=== PATIENT | male | born 1965 | race American Indian/Alaskan Native ===

== ENCOUNTER 2018-02-06 11:03 | Emergency (ER) | payer SELFPAY ==
[2018-02-06] MEDS ORDERED: ASPIRIN PO ONE (11:23)
[2018-02-06 12:11] LABS: Basophils % (Auto) 0.3 % (0.0-1.8); Eosinophils # (Auto) 0.1 K/mm3 (0.0-0.4); Eosinophils % (Auto) 0.7 % (0.0-4.3); Hematocrit 39.3 % (35.5-45.6); Hemoglobin 12.8 gm/dl (11.8-15.2); Lymphocytes # (Auto) 2.6 K/mm3 (1.2-5.4); Lymphocytes % (Auto) 29.8 % (13.4-35.0); Mean Corpuscular HGB Conc 33 % (32-34); Mean Corpuscular Hemoglobin 29 pg (28-32); Mean Corpuscular Volume 89 fl (84-94); Monocytes # (Auto) 1.2 K/mm3 (0.0-0.8); Monocytes % (Auto) 14.2 % (0.0-7.3); Platelet Count 251 K/mm3 (140-440); Red Blood Count 4.43 M/mm3 (3.65-5.03); Red Cell Distribution Width 14.1 % (13.2-15.2)
[2018-02-06 12:24] LABS: BUN/Creatinine Ratio 22; Blood Urea Nitrogen 22 mg/dL (9-20); Calcium 9.8 mg/dL (8.4-10.2); Hemolysis Index 9
[2018-02-06 13:31] LABS: Alanine Aminotransferase 13 units/L (7-56)
[2018-02-06 13:36] LABS: Bilirubin,Direct < 0.2 mg/dL (0-0.2)
--- NOTE | 2018-02-06 14:22 | Emergency Department Report ---
ED General Adult HPI - General Chief complaint: Syncope Stated complaint: SYNCOPE EPISODE Time Seen by Provider: 02/06/18 11:31 Source: patient, EMS Mode of arrival: Stretcher Limitations: No Limitations - History of Present Illness Initial comments: Patient presents to the emergency department via EMS for syncopal episode. The patient states that he is agreeable could admit bottles and this morning while at work he started to feel lightheaded and dizzy and also began to see black spots. Patient states at that time he told his boss he was not feeling well and stepped outside. Upon returning to the the patient states that he felt real weak and then he passed out. Patient denies chest pain, abdominal pain, headache. No evidence associated symptoms -: Sudden Radiation: non-radiation Severity scale (0 -10): 0 Improves with: none Worsens with: none Associated Symptoms: denies other symptoms Treatments Prior to Arrival: none - Related Data Allergies Allergy/AdvReac Type Severity Reaction Status Date / Time Penicillins Allergy Severe Shortness Verified 02/06/18 11:21 of Breath strawberry AdvReac Hives Verified 02/06/18 11:22 ED Review of Systems ROS: Stated complaint: SYNCOPE EPISODE Other details as noted in HPI Comment: All other systems reviewed and negative Constitutional: denies: chills, fever Eyes: denies: eye pain, eye discharge, vision change ENT: denies: ear pain, throat pain Respiratory: denies: cough, shortness of breath, wheezing Cardiovascular: denies: chest pain, palpitations Endocrine: no symptoms reported Gastrointestinal: denies: abdominal pain, nausea, diarrhea Genitourinary: denies: urgency, dysuria Musculoskeletal: denies: back pain, joint swelling, arthralgia Skin: denies: rash, lesions Neurological: denies: headache, weakness, paresthesias Psychiatric: denies: anxiety, depression Hematological/Lymphatic: denies: easy bleeding, easy bruising ED Past Medical Hx - Past Medical History Hx Arthritis: Yes (right hip) - Surgical History Past Surgical History?: No - Social History Smoking Status: Never Smoker ED Physical Exam - General Limitations: No Limitations General appearance: alert, in no apparent distress - Head Head exam: Present: atraumatic, normocephalic - Eye Eye exam: Present: normal appearance - ENT ENT exam: Present: mucous membranes moist - Neck Neck exam: Present: normal inspection - Respiratory Respiratory exam: Present: normal lung sounds bilaterally. Absent: respiratory distress, wheezes, rales - Cardiovascular Cardiovascular Exam: Present: regular rate, normal rhythm. Absent: systolic murmur, diastolic murmur, rubs, gallop - GI/Abdominal GI/Abdominal exam: Present: soft, normal bowel sounds. Absent: distended, tenderness - Rectal Rectal exam: Present: deferred - Extremities Exam Extremities exam: Present: normal inspection - Back Exam Back exam: Present: normal inspection - Neurological Exam Neurological exam: Present: alert, oriented X3, CN II-XII intact. Absent: motor sensory deficit - Psychiatric Psychiatric exam: Present: normal affect, normal mood - Skin Skin exam: Present: warm, dry, intact, normal color. Absent: rash ED Course Vital Signs 02/06/18 02/06/18 02/06/18 11:09 11:24 13:57 Temperature 98.5 F 98.5 F Pulse Rate 80 83 Pulse Rate [ 65 Lying] Pulse Rate [ 68 Sitting] Pulse Rate [ 88 Standing] Respiratory 21 19 Rate Blood Pressure 118/82 Blood Pressure 129/81 [Lying] Blood Pressure 128/90 [Right] Blood Pressure 136/92 [Sitting] Blood Pressure 154/108 [Standing] O2 Sat by Pulse 98 98 Oximetry 02/06/18 14:01 Temperature Pulse Rate 88 Pulse Rate [ Lying] Pulse Rate [ Sitting] Pulse Rate [ Standing] Respiratory 16 Rate Blood Pressure Blood Pressure [Lying] Blood Pressure 154/108 [Right] Blood Pressure [Sitting] Blood Pressure [Standing] O2 Sat by Pulse 100 Oximetry ED Medical Decision Making - Lab Data Result diagrams: 02/06/18 11:38 02/06/18 11:38 - EKG Data -: EKG Interpreted by Md EKG shows normal: sinus rhythm Rate: normal (77 bpm) - EKG Data Interpretation: nonspecific ST-T wave fritz - Medical Decision Making Discussed results with patient and the need for admission. The patient politely declined and states that he feels much better now and would rather go home. Critical care attestation.: If time is entered above; I have spent that time in minutes in the direct care of this critically ill patient, excluding procedure time. ED Disposition Clinical Impression: Vaso vagal episode Disposition: -01 TO HOME OR SELFCARE Is pt being admited?: No Does the pt Need Aspirin: No Condition: Stable Instructions: Syncope (ED) Additional Instructions: Return if symptoms worsen Referrals: PRIMARY CARE, [Primary Care Provider] - 3-5 Days JAMESON MTZ MD [Staff Physician] - 3-5 Days Time of Disposition: 14:56
--- NOTE | 2018-02-06 14:27 | Cat Scan Report ---
FINAL REPORT EXAM: CT HEAD/BRAIN WO CON HISTORY: syncope TECHNIQUE: CT examination of the head without IV contrast PRIORS: None. FINDINGS: Slight atherosclerotic calcification in the carotid siphon bilaterally. No acute air-fluid level visualized in the included air-filled sinuses. Bone windows demonstrate no acute fracture. The brain is without mass, mass effect, hemorrhage, or acute infarct. There is no extra-axial intracranial bleed, brain bleed, or midline shift. The ventricles and sulci are age-appropriate. IMPRESSION: No acute CVA, intracranial bleed, or brain mass
[2018-02-06 15:11] VITALS: BP 117/80
== END 2018-02-06 15:21 | disposition home or self-care (01) ==
LOC: ED 11:03
DX: R55 Syncope and collapse (principal); M19.90 Unspecified osteoarthritis, unspecified site; Z88.0 Allergy status to penicillin; Z91.018 Allergy to other foods
CPT/HCPCS: 36415; 70450; 80048; 80074; 84484; 85025; 93005; 93010; 99285

== ENCOUNTER 2020-05-08 23:33 | Observation (INO) | payer SELFPAY ==
--- NOTE | 2020-05-09 00:19 | Emergency Department Report ---
HPI - General Chief Complaint: Hyperglycemia Time Seen by Provider: 05/08/20 23:59 - HPI HPI: This is a 54-year-old male presents to the emergency department via EMS from home with complaint of some chest discomfort, lower abdominal pain, and hyperglycemia. Patient was eating dinner this evening when he started developing some mild midsternal chest discomfort and some lower abdominal cramping pain. It started feeling better after taking 3 baby aspirin. EMS found the patient to have a critically high blood sugar by Accu-Chek. Patient does have a history of insulin-dependent diabetes, hypertension and arthritis. He takes Novolin 70/30 with 15 units 3 times a day at meals and says he has been compliant. Patient follows with a [place] physician for primary care. No recent travel or sick contacts at home. ED Past Medical Hx - Past Medical History Previous Medical History?: Yes Hx Hypertension: Yes Hx Diabetes: Yes Hx Arthritis: Yes - Surgical History Past Surgical History?: No - Social History Smoking Status: Never Smoker Substance Use Type: None - Medications Home Medications: Home Medications Medication Instructions Recorded Confirmed Last Taken Type Insulin NPH/Regular [Novolin 70/30] 15 unit SQ TIDAC #1 vial 04/05/20 05/09/20 Unknown Rx Syringe and Needle,Insulin,1Ml 1 each MC TID #1 box 04/05/20 05/09/20 Unknown Rx [Insulin Syringe/Needle 1 ML] ED Review of Systems ROS: Stated complaint: CHEST/STOMACH PAIN Other details as noted in HPI Comment: All other systems reviewed and negative Constitutional: denies: chills, fever Eyes: denies: eye pain, vision change ENT: denies: ear pain, throat pain Respiratory: denies: cough, shortness of breath Cardiovascular: chest pain. denies: palpitations Gastrointestinal: abdominal pain. denies: vomiting Genitourinary: denies: dysuria, discharge Musculoskeletal: denies: back pain, arthralgia Skin: denies: rash, lesions Neurological: denies: headache, weakness Physical Exam - Physical Exam Vital Signs: Vital Signs 05/08/20 23:36 Temperature 99.3 F Pulse Rate 117 H Respiratory 20 Rate Blood Pressure 125/99 O2 Sat by Pulse 98 Oximetry Physical Exam: GENERAL: The patient is well-developed well-nourished. HENT: Normocephalic. Atraumatic. Patient has moist mucous membranes. EYES: Extraocular motions are intact. NECK: Supple. Trachea is midline. CHEST/LUNGS: Clear to auscultation. There is no respiratory distress noted. HEART/CARDIOVASCULAR: Regular. There is mild tachycardia. There is no murmur. ABDOMEN: Abdomen is soft. Lower abdominal tenderness to the patient a no guarding. Patient has normal bowel sounds. SKIN: Skin is warm and dry. NEURO: The patient is awake, alert, and oriented. The patient is cooperative. The patient has no focal neurologic deficits. Normal speech. MUSCULOSKELETAL: There is no tenderness or deformity. There is no evidence of acute injury. ED Course Vital Signs 05/08/20 23:36 Temperature 99.3 F Pulse Rate 117 H Respiratory 20 Rate Blood Pressure 125/99 O2 Sat by Pulse 98 Oximetry ED Medical Decision Making - Lab Data Result diagrams: 05/08/20 23:46 05/08/20 23:46 - EKG Data -: EKG Interpreted by Nh EKG shows normal: sinus rhythm, axis, intervals, QRS complexes, ST-T waves Rate: tachycardia (104 bpm) - EKG Data When compared to previous EKG there are: no significant change Interpretation: unchanged when compared t (04/03/20) - Radiology Data Radiology results: report reviewed ACUTE ABDOMEN SERIES 3 VIEWS 0048 INDICATION: abd pain, CP COMPARISON: None available. FINDINGS: Poor degree of inspiration is seen but lung campbell appear clear Trace. Mild right basilar atelectasis is noted. No pneumoperitoneum is seen. Bowel gas pattern is unremarkable. There probably is left nephrolithiasis. CT ABDOMEN AND PELVIS WITH CONTRAST INDICATION: lower abd pain CONTRAST: 100 cc Omnipaque 300 IV COMPARISON: 04/03/[address] scans at this location are performed using CT dose reduction for ALARA by means of automated exposure control. FINDINGS: Moderate motion artifact degrades the study. Lung bases show no definite infiltrates. No pneumoperitoneum is seen. Prominent fatty infiltration of the liver is seen without obvious focal lesion. Liver is enlarged and has a length of 25.5 cm. Spleen is not enlarged. I see no abnormalities the gallbladder, bile ducts, pancreas, or adrenals. Bilateral renal cysts and probable cysts are again seen. No urinary obstructive changes are noted. Small duodenal diverticulum is seen. No evidence of bowel obstruction is noted. Appendix appears within normal limits. Mild colonic diverticulosis is seen without evidence of diverticulitis. No inflammatory changes are obvious. No lymphadenopathy is seen. No free fluid is noted. IMPRESSION: No acute abnormalities are seen - Medical Decision Making This patient presents to the emergency department with a complaint of some acute midsternal chest pain and lower abdominal pain. When EMS got there he was found to have critically high blood sugar despite alleged compliance with his insulin. Patient does not have any venous acidosis or any serum ketones, but does have a elevated anion gap and had a blood sugar of about 630. Patient has an elevated osmolality. He was given 2 doses of IV insulin and 2 L of IV fluid resuscitation and the blood sugar has started to come down. First troponin negative. Negative d-dimer. Chest x-ray did not show any acute process. Patie nt will be admitted to the hospital for further evaluation and treatment and was accepted for admission by the hospitalist, Dr. Ac. Critical Care Time: No Critical care attestation.: If time is entered above; I have spent that time in minutes in the direct care of this critically ill patient, excluding procedure time. ED Disposition Clinical Impression: Hyperosmolar non-ketotic state due to type 2 diabetes mellitus, Acute chest pain, Acute abdominal pain, Metabolic acidosis, increased anion gap Disposition: 09 OP ADMIT IP TO THIS HOSP Is pt being admited?: Yes Condition: Serious Time of Disposition: 04:55
[2020-05-09 00:22] LABS: Basophils % (Auto) 0.3 % (0.0-1.8); Eosinophils % (Auto) 0.2 % (0.0-4.3); Hematocrit 46.4 % (35.5-45.6); Hemoglobin 15.6 gm/dl (11.8-15.2); Lymphocytes # (Auto) 2.6 K/mm3 (1.2-5.4); Lymphocytes % (Auto) 23.3 % (13.4-35.0); Mean Corpuscular HGB Conc 34 % (32-34); Mean Corpuscular Volume 89 fl (84-94); Monocytes # (Auto) 1.1 K/mm3 (0.0-0.8); Monocytes % (Auto) 9.4 % (0.0-7.3); Platelet Count 276 K/mm3 (140-440); Red Cell Distribution Width 13.9 % (13.2-15.2)
[2020-05-09 00:41] LABS: Alanine Aminotransferase 58 units/L (7-56); Albumin 4.2 g/dL (3.9-5); BUN/Creatinine Ratio 13; Blood Urea Nitrogen 20 mg/dL (9-20); Hemolysis Index 7
[2020-05-09 00:41] LABS: Bilirubin,Urine NEG (Negative); Blood,Urine NEG (Negative); Color,Urine Yellow (Yellow); Mucus,Urine FEW /HPF; Protein,Urine <15 mg/dL mg/dL (Negative); Urobilinogen,Urine < 2.0 mg/dL (<2.0)
[2020-05-09 00:49] LABS: INR 0.99 (0.87-1.13)
--- NOTE | 2020-05-09 01:01 | XRay Report ---
ACUTE ABDOMEN SERIES 3 VIEWS 0048 INDICATION: abd pain, CP COMPARISON: None available. FINDINGS: Poor degree of inspiration is seen but lung campbell appear clear Trace. Mild right basilar atelectasis is noted. No pneumoperitoneum is seen. Bowel gas pattern is unr emarkable. There probably is left nephrolithiasis. Signer Name: Zeeshan Spear MD Signed: 05/09/2020 12:56 AM Workstation Name: [id number]
[2020-05-09] MEDS: INSULIN REGULAR, HUMAN 100 UNITS/1 ML IV ONE ×2 (01:16→01:43)
[2020-05-09] MEDS: SODIUM CHLORIDE 0.9% 1000 ML 1,000 ML IV ONE ×2 (01:16→01:43)
[2020-05-09] MEDS ORDERED: SODIUM CHLORIDE 0.9% 1000 ML 1,000 ML IV ONE ×2 (03:03→04:54)
[2020-05-09] MEDS ORDERED: INSULIN REGULAR, HUMAN 100 UNITS/1 ML IV ONE (03:03)
--- NOTE | 2020-05-09 04:30 | Cat Scan Report ---
CT ABDOMEN AND PELVIS WITH CONTRAST INDICATION: lower abd pain CONTRAST: 100 cc Omnipaque 300 IV COMPARISON: 04/03/[address] scans at this location are performed using CT dose reduction for ALARA by means of automated e xposure control. FINDINGS: Moderate motion artifact degrades the study. Lung bases show no definite infiltrates. No pneumoperitoneum is seen. Prominent fatty infiltration of the liver is seen without obvious focal lesion. Liver is enlarged and has a length of 25.5 cm. Splee n is not enlarged. I see no abnormalities the gallbladder, bile ducts, pancreas, or adrenals. Bilater al renal cysts and probable cysts are again seen. No urinary obstructive changes are noted. Small duo denal diverticulum is seen. No evidence of bowel obstruction is noted. Appendix appears within normal limits. Mild colonic diverticulosis is seen without evidence of diverticulitis. No inflammatory telles ges are obvious. No lymphadenopathy is seen. No free fluid is noted. IMPRESSION: No acute abnormalities are seen Signer Name: Zeeshan Spear MD Signed: 05/09/2020 4:26 AM Workstation Name: [id number]
[2020-05-09] MEDS ORDERED: ASPIRIN 81 MG TAB CHEW PO ONE (04:48)
--- NOTE | 2020-05-09 08:05 | History and Physical Report ---
History of Present Illness Date of examination: 05/09/20 Date of admission: 05/09/20 Chief complaint: Chest pain and abdominal pain History of present illness: Patient is a 55-year-old male with past medical history of type 2 diabetes mellitus which he states was recently diagnosed, morbid obesity, HTN, HLP arthritis and right hip chronic pain which she is scheduled to have surgery recently Who presents to the ED with complaint of chest pain that started after dinner with some lower abdominal cramping. Patient reports feeling better after taking 3 baby aspirin EMS was activated and on arrival was noted to have elevated blood sugar. The patient reports compliance with his insulin although states that he just started this. He takes Novolin 70/30 with 15 units 3 times a day at meals and says he has been compliant. Patient follows with a [place] physician for primary care. No recent travel or sick contacts at home. - Past Medical History Previous Medical History?: Yes Hx Hypertension: Yes Hx Diabetes: Yes Hx Arthritis: Yes - Surgical History Past Surgical History?: No - Social History Smoking Status: Never Smoker Substance Use Type: None Past History Past Medical History: diabetes, hypertension, hyperlipidemia Past Surgical History: No surgical history Social history: no significant social history, full code Family history: no significant family history Medications and Allergies Allergies Allergy/AdvReac Type Severity Reaction Status Date / Time Penicillins Allergy Severe Shortness Verified 02/06/18 11:21 of Breath strawberry AdvReac Hives Verified 02/06/18 11:22 Home Medications Medication Instructions Recorded Confirmed Last Taken Type Insulin NPH/Regular [Novolin 70/30] 15 unit SQ TIDAC #1 vial 04/05/20 05/09/20 Unknown Rx Syringe and Needle,Insulin,1Ml 1 each MC TID #1 box 04/05/20 05/09/20 Unknown Rx [Insulin Syringe/Needle 1 ML] Active Meds: Active Medications Sodium Chloride (Nacl 0.9% 1000 Ml) 1,000 mls @ 250 mls/hr IV ONCE ONE Stop: 05/09/20 08:53 Last Admin: 05/09/20 05:05 Dose: 250 mls/hr Documented by: Review of Systems All systems: negative Cardiovascular: chest pain, no orthopnea, no palpitations, no rapid/irregular heart beat, no edema, no syncope, no lightheadedness, no shortness of breath Respiratory: no cough, no cough with sputum, no excessive sputum, no hemoptysis, no shortness of breath, no dyspnea on exertion Gastrointestinal: abdominal pain, no nausea, no vomiting, no diarrhea, no constipation Musculoskeletal: other (Right hip pain) Exam - Physical Exam Narrative exam: VITAL SIGNS: Reviewed. GENERAL: The patient appears normally developed, morbidly obese. Vital signs as documented. HEAD: No signs of head trauma. EYES: Pupils are equal. Extraocular motions intact. EARS: Hearing grossly intact. MOUTH: Oropharynx is normal. NECK: No adenopathy, no JVD. CHEST: Chest with clear breath sounds bilaterally. No wheezes, rales, or rhonchi. CARDIAC: Regular rate and rhythm. S1 and S2, without murmurs, gallops, or rubs. VASCULAR: No Edema. Peripheral pulses normal and equal in all extremities. ABDOMEN: Soft, non tender and non distended. No rebound or guarding, and no masses palpated. Bowel Sounds normal. MUSCULOSKELETAL: Good range of motion of all major joints. Extremities without clubbing, cyanosis or edema. NEUROLOGIC EXAM: Alert and oriented x 3 No focal sensory or strength deficits. Speech normal. Follows commands. PSYCHIATRIC: Mood normal. SKIN: detail exam as documented in skin assessment - Constitutional Vitals: Temp Pulse Resp BP Pulse Ox 99.3 F 98 H 20 119/78 95 05/08/20 23:36 05/09/20 03:14 05/08/20 23:36 05/09/20 03:00 05/09/20 02:00 HEART Score - HEART Score EKG: Non-specific Age: 45-65 Risk factors: > 3 risk factors or hx of atherosclerotic disease Troponin: Troponin T < 0.010 ng/mL (0.00-0.029) 05/09/20 00:15 Troponin: < normal limit Results - Labs CBC & Chem 7: 05/09/20 08:28 05/09/20 08:28 Labs: Laboratory Last Values WBC 11.2 K/mm3 (4.5-11.0) H 05/08/20 23:46 RBC 5.20 M/mm3 (3.65-5.03) H 05/08/20 23:46 Hgb 15.6 gm/dl (11.8-15.2) H 05/08/20 23:46 Hct 46.4 % (35.5-45.6) H 05/08/20 23:46 MCV 89 fl (84-94) 05/08/20 23:46 MCH 30 pg (28-32) 05/08/20 23:46 MCHC 34 % (32-34) 05/08/20 23:46 RDW 13.9 % (13.2-15.2) 05/08/20 23:46 Plt Count 276 K/mm3 (140-440) 05/08/20 23:46 Lymph % (Auto) 23.3 % (13.4-35.0) 05/08/20 23:46 [place] % (Auto) 9.4 % (0.0-7.3) H 05/08/20 23:46 Eos % (Auto) 0.2 % (0.0-4.3) 05/08/20 23:46 Baso % (Auto) 0.3 % (0.0-1.8) 05/08/20 23:46 Lymph # 2.6 K/mm3 (1.2-5.4) 05/08/20 23:46 [place] # 1.1 K/mm3 (0.0-0.8) H 05/08/20 23:46 Eos # 0.0 K/mm3 (0.0-0.4) 05/08/20 23:46 Baso # 0.0 K/mm3 (0.0-0.1) 05/08/20 23:46 Seg Neutrophils % 66.8 % (40.0-70.0) 05/08/20 23:46 Seg Neutrophils # 7.5 K/mm3 (1.8-7.7) 05/08/20 23:46 PT 13.3 Sec. (12.2-14.9) 05/09/20 00:15 INR 0.99 (0.87-1.13) 05/09/20 00:15 D-Dimer 235.37 ng/mlDDU (0-234) H 05/09/20 00:15 VBG pH 7.414 (7.320-7.420) 05/08/20 23:46 Sodium 126 mmol/L (137-145) L 05/08/20 23:46 Potassium 4.9 mmol/L (3.6-5.0) 05/08/20 23:46 Chloride 89.2 mmol/L (98-107) L 05/08/20 23:46 Carbon Dioxide 17 mmol/L (22-30) L 05/08/20 23:46 Anion Gap 25 mmol/L 05/08/20 23:46 BUN 20 mg/dL (9-20) 05/08/20 23:46 Creatinine 1.5 mg/dL (0.8-1.3) H 05/08/20 23:46 Estimated GFR 59 ml/min 05/08/20 23:46 BUN/Creatinine Ratio 13 % 05/08/20 23:46 Glucose 628 mg/dL (75-100) H* 05/08/20 23:46 POC Glucose 413 (70-105) H 05/09/20 05:07 Ketones Quantitative Negative (Negative) 05/08/20 23:46 Osmolality 309 Mosm/kg 05/09/20 Unknown Calcium 10.0 mg/dL (8.4-10.2) 05/08/20 23:46 Total Bilirubin 0.70 mg/dL (0.1-1.2) 05/08/20 23:46 AST 35 units/L (5-40) 05/08/20 23:46 ALT 58 units/L (7-56) H 05/08/20 23:46 Alkaline Phosphatase 189 units/L (35-129) H 05/08/20 23:46 Troponin T < 0.010 ng/mL (0.00-0.029) 05/09/20 00:15 Total Protein 8.3 g/dL (6.3-8.2) H 05/08/20 23:46 Albumin 4.2 g/dL (3.9-5) 05/08/20 23:46 Albumin/Globulin Ratio 1.0 % 05/08/20 23:46 Lipase 72 units/L (13-60) H 05/09/20 00:15 Urine Color Yellow (Yellow) 05/08/20 Unknown Urine Turbidity Clear (Clear) 05/08/20 Unknown Urine pH 5.0 (5.0-7.0) 05/08/20 Unknown Ur Specific [place] 1.028 (1.003-1.030) 05/08/20 Unknown Urine Protein <15 mg/dl mg/dL (Negative) 05/08/20 Unknown Urine Glucose (UA) >=500 mg/dL (Negative) 05/08/20 Unknown Urine Ketones Tr mg/dL (Negative) 05/08/20 Unknown Urine Blood Neg (Negative) 05/08/20 Unknown Urine Nitrite Neg (Negative) 05/08/20 Unknown Urine Bilirubin Neg (Negative) 05/08/20 Unknown Urine Urobilinogen < 2.0 mg/dL (<2.0) 05/08/20 Unknown Ur Leukocyte Esterase Neg (Negative) 05/08/20 Unknown Urine WBC (Auto) 1.0 /HPF (0.0-6.0) 05/08/20 Unknown Urine RBC (Auto) 1.0 /HPF (0.0-6.0) 05/08/20 Unknown U Epithel Cells (Auto) < 1.0 /HPF (0-13.0) 05/08/20 Unknown Urine Mucus Few /HPF 05/08/20 Unknown Assessment and Plan Assessment and plan: Patient is a 55-year-old male with past medical history of type 2 diabetes mellitus which he states was recently diagnosed, morbid obesity, HTN, HLP arthritis and right hip chronic pain which she is scheduled to have surgery recently Who presents to the ED with complaint of chest pain that started after dinner with some lower abdominal cramping. Patient reports feeling better after taking 3 baby aspirin EMS was activated and on arrival was noted to have elevated blood sugar. The patient reports compliance with his insulin although states that he just started this. He takes Novolin 70/30 with 15 units 3 times a day at meals and says he has been compliant. Patient follows with a [place] physician for primary care. No recent travel or sick contacts at home. - EKG Data When compared to previous EKG there are: no significant change Interpretation: unchanged when compared t (04/03/20) Abdominal x-ray shows: appear clear Trace. Mild right basilar atelectasis is noted. No pneumoperitoneum is seen. Bowel gas pattern is unremarkable. There probably is left nephrolithiasis. CT AP: IMPRESSION: No acute abnormalities are seen Atypical chest pain likely secondary to GERD GERD Abdominal pain Morbid obesity Hyperosmolar non-ketotic state due to type 2 diabetes mellitus Chronic lower extremity pain Right hip osteoarthritis Metabolic acidosis Hyponatremia Acute kidney injury secondary to vasomotor nephropathy Plan Admit to telemetry Chest pain protocol with beta-misti, morphine, oxygen, statin therapy, nitro PPI Diabetic control medication provided to the patient Continue insulin therapy and NPH Monitor troponin Gentle hydration and recheck renal function Cardiology consultation considering risk factors DVT and GI prophylaxis Advance Directives: Yes Plan of care discussed with patient/family: Yes
[2020-05-09] MEDS ORDERED: NALOXONE 0.4 MG/1 ML INJ IV PRN (08:07)
[2020-05-09] MEDS ORDERED: METOCLOPRAMIDE 10 MG/2 ML INJ IV PRN (08:07)
[2020-05-09] MEDS ORDERED: ONDANSETRON 4 MG/2 ML INJ IV PRN (08:07)
[2020-05-09] MEDS ORDERED: DEXTROSE 50% IN WATER (25GM) 50 ML SYRINGE IV PRN (08:07)
[2020-05-09] MEDS ORDERED: ALBUTEROL 2.5 MG/3 ML NEBU IH PRN (08:07)
[2020-05-09] MEDS ORDERED: ACETAMINOPHEN 325 MG TAB PO PRN (08:07)
[2020-05-09] MEDS ORDERED: MORPHINE 2 MG/1 ML INJ IV PRN (08:07)
[2020-05-09] MEDS ORDERED: ALUM-MAG HYDROXIDE-SIMETHICONE 200-200-20MG/5ML ORAL LIQD 30 ML PO PRN (08:07)
[2020-05-09] MEDS ORDERED: SODIUM CHLORIDE 0.9% 1000 ML 1,000 ML IV SCH (08:15)
[2020-05-09 08:50] LABS: Basophils % (Auto) 0.3 % (0.0-1.8); Eosinophils # (Auto) 0.1 K/mm3 (0.0-0.4); Eosinophils % (Auto) 0.9 % (0.0-4.3); Hematocrit 41.3 % (35.5-45.6); Hemoglobin 13.9 gm/dl (11.8-15.2); Lymphocytes # (Auto) 2.7 K/mm3 (1.2-5.4); Lymphocytes % (Auto) 29.8 % (13.4-35.0); Mean Corpuscular HGB Conc 34 % (32-34); Mean Corpuscular Volume 88 fl (84-94); Monocytes % (Auto) 11.2 % (0.0-7.3); Platelet Count 189 K/mm3 (140-440); Red Blood Count 4.69 M/mm3 (3.65-5.03); Red Cell Distribution Width 13.5 % (13.2-15.2)
[2020-05-09 09:08] LABS: Alanine Aminotransferase 46 units/L (7-56); Albumin 3.6 g/dL (3.9-5); BUN/Creatinine Ratio 15; Blood Urea Nitrogen 18 mg/dL (9-20); Calcium 8.9 mg/dL (8.4-10.2); Chol/HDL Ratio 4.81 %; HDL Cholesterol 27 mg/dL (40-59); Hemolysis Index 2; LDL Cholesterol,Direct 86 mg/dL (50-130)
[2020-05-09] MEDS ORDERED: INSULIN LISPRO 100 UNIT/ML SUB-Q ONE (09:43)
[2020-05-09] MEDS: INSULIN LISPRO 100 UNIT/ML SUB-Q SCH ×3 (11:12→21:42)
[2020-05-09] MEDS ORDERED: INSULIN REGULAR, HUMAN 100 UNITS/1 ML ONE (12:31)
[2020-05-09] MEDS: IPRATROPIUM/ALBUTEROL SULFATE 3 ML AMPUL.NEB IH SCH ×2 (14:21→20:23)
[2020-05-09] MEDS: LISINOPRIL 5 MG TAB PO SCH (15:05)
[2020-05-09] MEDS: PANTOPRAZOLE 40 MG INJ IV SCH (15:05)
[2020-05-09] MEDS: HEPARIN 5,000 UNIT/1 ML VIAL SUB-Q SCH ×2 (15:06→21:42)
--- NOTE | 2020-05-09 15:14 | Consultation ---
History of Present Illness Consult date: 05/09/20 Requesting physician: FLORENCIO PACHECO Consult reason: chest pain History of present illness: Pt is a 54 y.o. AA male with a past medical hx of HTN, HLD, and newly diagnosed DM2 who presented with complaints of chest pain since last night. Pt states he had one episode of sudden onset substernal chest tightness approximately 30 min after eating dinner. The pain radiated to his R jaw and R shoulder. Associated with SOB and "squeezing" stomach pain. Pt states pain was relieved by bASA x 2 at home. He reports no previous episodes of chest pain; however, he does report abdominal pain several times a month. He states he usually drinks water and lets it resolve naturally. Pt denies any additional cardiac sx. Trop neg x 1. ECG reveals no acute ischemic changes. CXR reveals mild R basilar atelectasis. Of note, pt reports he recently lost his job and has thus been out of his home medications for about 1.5 months. Past History Past Medical History: diabetes, hypertension, hyperlipidemia Social history: full code. denies: smoking, alcohol abuse Medications and Allergies Allergies Allergy/AdvReac Type Severity Reaction Status Date / Time Penicillins Allergy Severe Shortness Verified 02/06/18 11:21 of Breath strawberry AdvReac Hives Verified 02/06/18 11:22 Home Medications Medication Instructions Recorded Confirmed Last Taken Type Insulin NPH/Regular [Novolin 70/30] 15 unit SQ TIDAC #1 vial 04/05/20 05/09/20 Unknown Rx Syringe and Needle,Insulin,1Ml 1 each MC TID #1 box 04/05/20 05/09/20 Unknown Rx [Insulin Syringe/Needle 1 ML] Active Meds: Active Medications Acetaminophen (Tylenol) 650 mg PO Q4H PRN PRN Reason: Pain MILD(1-3)/Fever >100.5/ARROYO Al Hydrox/Mg Hydrox/Simethicone (Alum-Mag Hydrox-Simeth [phone]/5ml) 30 ml PO Q4H PRN PRN Reason: Indigestion Albuterol (Proventil) 2.5 mg IH Q3HRT PRN PRN Reason: Shortness Of Breath Albuterol/Ipratropium (Duoneb *Not For Prn Use*) 1 ampul IH Q6HRT JEFF Last Admin: 05/09/20 14:21 Dose: 1 ampul Documented by: Aspirin (Ecotrin) 325 mg PO QDAY [facility] Atorvastatin Calcium (Lipitor) 40 mg PO QHS [facility] Dextrose (D50w (25gm) Syringe) 50 ml IV Q30MIN PRN; Protocol PRN Reason: Hypoglycemia Heparin Sodium (Porcine) (Heparin) 5,000 unit SUB-Q Q8HR [facility] Last Admin: 05/09/20 15:06 Dose: 5,000 unit Documented by: Sodium Chloride (Nacl 0.9% 1000 Ml) 1,000 mls @ 150 mls/hr IV DIRECT [facility] Insulin Human Isoph/Insulin Regular (Humulin 70/30) 30 unit SUB-Q BIDDIAB [facility] Insulin Human Lispro (Humalog) 0 unit SUB-Q ACHS [facility]; Protocol Last Admin: 05/09/20 11:12 Dose: 8 unit Documented by: Insulin Human Regular (Humulin R) 20 units SUB-Q QHS [facility] Lisinopril (Zestril) 5 mg PO QDAY [facility] Last Admin: 05/09/20 15:05 Dose: 5 mg Documented by: Metoclopramide HCl (Reglan) 5 mg IV Q6H PRN PRN Reason: Nausea And Vomiting Morphine Sulfate (Morphine) 2 mg IV Q4H PRN PRN Reason: Pain, Moderate (4-6) Naloxone HCl (Naloxone) 0.1 mg IV Q2MIN PRN PRN Reason: Res Rate </= 8 or 02 SAT < 92% Ondansetron HCl (Zofran) 4 mg IV Q8H PRN PRN Reason: Nausea And Vomiting Pantoprazole Sodium (Protonix) 40 mg IV QDAY [facility] Last Admin: 05/09/20 15:05 Dose: 40 mg Documented by: Sodium Chloride (Sodium Chloride Flush Syringe 10 Ml) 10 ml IV BID [facility] Last Admin: 05/09/20 11:13 Dose: 10 ml Documented by: Review of Systems Constitutional: no fever, no chills Ears, nose, mouth and throat: no sore throat Cardiovascular: chest pain, shortness of breath, no orthopnea, no palpitations, no edema, no syncope, no lightheadedness, no dyspnea on exertion, no paroxysmal nocturnal dyspnea, no claudication Respiratory: cough, shortness of breath, no dyspnea on exertion, no congestion, no wheezing Gastrointestinal: abdominal pain, no nausea, no vomiting, no diarrhea, no constipation Genitourinary Male: no dysuria, no flank pain Musculoskeletal: no neck stiffness, no neck pain Integumentary: no rash, no wounds Neurological: no head injury, no paralysis, no weakness, no parathesias, no numbness, no tingling, no seizures, no syncope, no vertigo, no headaches Endocrine: polyuria, no cold intolerance, no heat intolerance, no polydipsia Hematologic/Lymphatic: no easy bruising, no easy bleeding Allergic/Immunologic: no urticaria, no angioedema Physical Examination Last Vital Signs Temp 98.8 F 05/09/20 14:47 Pulse 84 05/09/20 15:05 Resp 18 05/09/20 14:47 BP 112/82 05/09/20 15:05 Pulse Ox 98 05/09/20 14:25 General appearance: no acute distress HEENT: Positive: EOMI, Normocephaly, Mucus Membranes Moist Neck: Positive: neck supple, trachea midline. Negative: JVD/HJR Cardiac: Positive: Reg Rate and Rhythm, S1/S2 Lungs: Positive: clear to auscultation (bilaterally) Neuro: Positive: Grossly Intact Abdomen: Positive: Soft, Active Bowel Sounds. Negative: Tender Skin: Negative: Rash, Wound Musculoskeletal: No Fluid Collection, No Pain, Normal Range of Motion Extremities: Present: upper extr. pulses, lower extr. pulses. Absent: edema Results 05/09/20 08:28 05/09/20 08:28 Cardiac Enzymes 05/08/20 05/09/20 Range/Units 23:46 08:28 AST 35 29 (5-40) units/L Coagulation 05/09/20 Range/Units 00:15 PT 13.3 (12.2-14.9) Sec. INR 0.99 (0.87-1.13) Lipids 05/09/20 Range/Units 08:28 Triglycerides 146 (2-149) mg/dL Cholesterol 130 (50-199) mg/dL HDL Cholesterol 27 L (40-59) mg/dL Cholesterol/HDL Ratio 4.81 % CBC 05/08/20 05/09/20 Range/Units 23:46 08:28 WBC 11.2 H 9.2 (4.5-11.0) K/mm3 RBC 5.20 H 4.69 (3.65-5.03) M/mm3 Hgb 15.6 H 13.9 (11.8-15.2) gm/dl Hct 46.4 H 41.3 (35.5-45.6) % Plt Count 276 189 (140-440) K/mm3 Lymph # 2.6 2.7 (1.2-5.4) K/mm3 [place] # 1.1 H 1.0 H (0.0-0.8) K/mm3 Eos # 0.0 0.1 (0.0-0.4) K/mm3 Baso # 0.0 0.0 (0.0-0.1) K/mm3 Comprehensive Metabolic Panel 05/08/20 05/09/20 Range/Units 23:46 08:28 Sodium 126 L 132 L (137-145) mmol/L Potassium 4.9 4.4 (3.6-5.0) mmol/L Chloride 89.2 L 97.9 L (98-107) mmol/L Carbon Dioxide 17 L 23 (22-30) mmol/L BUN 20 18 (9-20) mg/dL Creatinine 1.5 H 1.2 (0.8-1.3) mg/dL Glucose 628 H* 416 H (75-100) mg/dL Calcium 10.0 8.9 (8.4-10.2) mg/dL AST 35 29 (5-40) units/L ALT 58 H 46 (7-56) units/L Alkaline Phosphatase 189 H 156 H (35-129) units/L Total Protein 8.3 H 6.9 (6.3-8.2) g/dL Albumin 4.2 3.6 L (3.9-5) g/dL - Imaging and Cardiology EKG: report reviewed, image reviewed - EKG Interpretation EKG: no acute changes EKG interpretations - Telemetry EKG Rhythm: Sinus Rhythm - EKG Sinus rhythms and dysrhythmias: sinus tachycardia Assessment and Plan Trend trop. Continue ASA and statin. Continue PPI. Continue home Lisinopril. Will consider Lexiscan MPI stress test on Monday vs possible outpatient ischemic eval. Pt seen in conjunction with Dr. Randall, who agrees with assessment and plan of care. - Patient Problems (1) Atypical chest pain Current Visit: Yes Status: Acute (2) Elevated d-dimer Current Visit: Yes Status: Acute (3) Abdominal pain Current Visit: Yes Status: Acute (4) Hyperosmolar non-ketotic state due to type 2 diabetes mellitus Current Visit: Yes Status: Acute (5) Hyponatremia Current Visit: Yes Status: Acute (6) HTN (hypertension) Current Visit: Yes Status: Chronic Qualifiers: Hypertension type: essential hypertension Qualified Code(s): I10 - Essential (primary) hypertension (7) HLD (hyperlipidemia) Current Visit: Yes Status: Chronic Qualifiers: Hyperlipidemia type: mixed hyperlipidemia Qualified Code(s): E78.2 - Mixed hyperlipidemia (8) DM2 (diabetes mellitus, type 2) Current Visit: Yes Status: Chronic (9) GERD (gastroesophageal reflux disease) Current Visit: Yes Status: Chronic
[2020-05-09] MEDS: INSULIN NPH/REGULAR 70/30 INJ SUB-Q SCH (16:52)
[2020-05-09] MEDS ORDERED: INSULIN REGULAR, HUMAN 100 UNITS/1 ML SUB-Q SCH (22:00)
[2020-05-10] MEDS: HEPARIN 5,000 UNIT/1 ML VIAL SUB-Q SCH ×2 (06:11→15:09)
[2020-05-10 07:38] LABS: Basophils % (Auto) 0.3 % (0.0-1.8); Eosinophils % (Auto) 0.7 % (0.0-4.3); Hematocrit 39.4 % (35.5-45.6); Hemoglobin 13.3 gm/dl (11.8-15.2); Lymphocytes # (Auto) 2.3 K/mm3 (1.2-5.4); Lymphocytes % (Auto) 32.8 % (13.4-35.0); Mean Corpuscular HGB Conc 34 % (32-34); Mean Corpuscular Volume 88 fl (84-94); Monocytes # (Auto) 0.7 K/mm3 (0.0-0.8); Monocytes % (Auto) 9.6 % (0.0-7.3); Platelet Count 173 K/mm3 (140-440); Red Blood Count 4.47 M/mm3 (3.65-5.03); Red Cell Distribution Width 13.5 % (13.2-15.2)
[2020-05-10 07:45] LABS: Alanine Aminotransferase 54 units/L (7-56); Albumin 3.3 g/dL (3.9-5); BUN/Creatinine Ratio 14; Blood Urea Nitrogen 14 mg/dL (9-20); Calcium 8.9 mg/dL (8.4-10.2); Hemolysis Index 4
[2020-05-10] MEDS ORDERED: IPRATROPIUM/ALBUTEROL SULFATE 3 ML AMPUL.NEB IH SCH (08:00)
[2020-05-10] MEDS: INSULIN NPH/REGULAR 70/30 INJ SUB-Q SCH (08:49)
[2020-05-10] MEDS: INSULIN LISPRO 100 UNIT/ML SUB-Q SCH ×2 (08:49→12:28)
[2020-05-10] MEDS: PANTOPRAZOLE 40 MG INJ IV SCH (09:00)
[2020-05-10] MEDS: LISINOPRIL 5 MG TAB PO SCH (09:00)
[2020-05-10] MEDS ORDERED: ASPIRIN EC 325 MG TAB PO SCH (10:00)
[2020-05-10] MEDS ORDERED: INSULIN NPH/REGULAR 70/30 INJ SUB-Q SCH ×2 (10:06→12:00)
--- NOTE | 2020-05-10 11:25 | Discharge Summary ---
Providers - Providers Date of Admission: 05/09/20 04:55 Attending physician: FLORENCIO PACHECO MD 05/09/20 Consult to Cardiac Rehabilitation [CONS] Routine Reason For Exam: Phase I 05/09/20 08:07 Consult to Physician [CONS] Routine Comment: Consulting Provider: NARESH LEIGH Physician Instructions: Reason For Exam: chest pain 05/09/20 08:08 Consult to Dietitian/Nutrition [CONS] Routine Physician Instructions: Reason For Exam: Reason for Consult: Diet education Primary care physician: [employer] TECHNICIAN Hospitalization Reason for admission: chest pain Condition: Serious Hospital course: Patient is a 55-year-old male with past medical history of type 2 diabetes mellitus which he states was recently diagnosed, morbid obesity, HTN, HLP arthritis and right hip chronic pain which she is scheduled to have surgery recently Who presents to the ED with complaint of chest pain that started after dinner with some lower abdominal cramping. Patient reports feeling better after taking 3 baby aspirin EMS was activated and on arrival was noted to have elevated blood sugar. The patient reports compliance with his insulin although states that he just started this. He takes Novolin 70/30 with 15 units 3 times a day at meals and says he has been compliant. Patient follows with a [facility] for primary care. No recent travel or sick contacts at home. Patient was admitted started on aspirin and statin therapy continued home lisinopril. His symptoms improved with the addition of PPI. Patient was evaluated by cardiology outpatient stress test was recommended we did have extensive discussion he verbalized understanding is clinically stable for discharge (1) Atypical chest pain secondary to GERD Current Visit: Yes Status: Acute (2) Elevated d-dimer Current Visit: Yes Status: Acute (3) Abdominal pain Current Visit: Yes Status: Acute (4) Hyperosmolar non-ketotic state due to type 2 diabetes mellitus Current Visit: Yes Status: Acute (5) Hyponatremia Current Visit: Yes Status: Acute (6) HTN (hypertension) Current Visit: Yes Status: Chronic Qualifiers: Hypertension type: essential hypertension Qualified Code(s): I10 - Essential (primary) hypertension (7) HLD (hyperlipidemia) Current Visit: Yes Status: Chronic Qualifiers: Hyperlipidemia type: mixed hyperlipidemia Qualified Code(s): E78.2 - Mixed hyperlipidemia (8) DM2 (diabetes mellitus, type 2) Current Visit: Yes Status: Chronic (9) right osteoarthritis (10)Morbid obesity (11) GERD (gastroesophageal reflux disease) Current Visit: Yes Status: Chronic Disposition: DC-01 TO HOME OR SELFCARE Time spent for discharge: 35-minute Core Measure Documentation - Palliative Care Palliative Care/ Comfort Measures: Not Applicable - Core Measures Any of the following diagnoses?: none Exam - Physical Exam Narrative exam: VITAL SIGNS: Reviewed. GENERAL: The patient appears normally developed, morbidly obese. Vital signs as documented. HEAD: No signs of head trauma. EYES: Pupils are equal. Extraocular motions intact. EARS: Hearing grossly intact. MOUTH: Oropharynx is normal. NECK: No adenopathy, no JVD. CHEST: Chest with clear breath sounds bilaterally. No wheezes, rales, or rhonchi. CARDIAC: Regular rate and rhythm. S1 and S2, without murmurs, gallops, or rubs. VASCULAR: No Edema. Peripheral pulses normal and equal in all extremities. ABDOMEN: Soft, non tender and non distended. No rebound or guarding, and no masses palpated. Bowel Sounds normal. MUSCULOSKELETAL: Good range of motion of all major joints. Extremities without clubbing, cyanosis or edema. NEUROLOGIC EXAM: Alert and oriented x 3 No focal sensory or strength deficits. Speech normal. Follows commands. PSYCHIATRIC: Mood normal. SKIN: detail exam as documented in skin assessment - Constitutional Vitals: Temp Pulse Resp BP Pulse Ox 98.2 F 94 H 20 108/66 97 05/10/20 08:09 05/10/20 09:00 05/10/20 08:09 05/10/20 09:00 05/10/20 08:09 Plan Activity: advance as tolerated, fall precautions Diet: low fat, diabetic Special Instructions: record daily weights, record daily BP diary Additional Instructions: must follow with cardiology for stress test. No strenous activity till stress test done Follow up with: PRIMARY CARE, [Primary Care Provider] - 3-5 Days GENEVIEVE CROWLEY MD [Staff Physician] - 7 Days Prescriptions: AtorvaSTATin [Lipitor] 40 mg PO QHS #30 tablet Aspirin [Adult Aspirin] 81 mg PO DAILY #30 tablet. Insulin NPH/Regular [NovoLIN 70/30] 20 unit SQ TIDAC #1 vial lisinopriL [Zestril TAB] 5 mg PO QDAY #30 tablet
[2020-05-10 15:14] VITALS: BP 116/77
--- NOTE | 2020-05-10 17:04 | Progress Note ---
Assessment and Plan Continue ASA and statin. Continue home Lisinopril. Continue PPI. Diabetes education and lifestyle modifications discussed at length with pt at bedside. Pt verbalized understanding. Pt reports recent normal stress test at [facility] in anticipation of elective hip surgery. Will attempt to obtain records. Otherwise, will consider ischemic eval as an outpatient. Currently stable cardiac status. Pt may be discharged from a Cardiology standpoint. Recommend follow-up in our office within 1-2 weeks ([phone]). Pt seen in conjunction with Dr. Randall, who agrees with assessment and plan of care. - Patient Problems (1) Atypical chest pain Status: Acute (2) Elevated d-dimer Status: Acute (3) Abdominal pain Status: Acute (4) Hyperosmolar non-ketotic state due to type 2 diabetes mellitus Status: Acute (5) Hyponatremia Status: Acute (6) HTN (hypertension) Status: Chronic Qualifiers: Hypertension type: essential hypertension Qualified Code(s): I10 - Essential (primary) hypertension (7) HLD (hyperlipidemia) Status: Chronic Qualifiers: Hyperlipidemia type: mixed hyperlipidemia Qualified Code(s): E78.2 - Mixed hyperlipidemia (8) DM2 (diabetes mellitus, type 2) Status: Chronic (9) GERD (gastroesophageal reflux disease) Status: Chronic Subjective Date of service: 05/10/20 Principal diagnosis: Chest Pain Interval history: Pt sitting up in bed comfortably upon exam. He states he has had no more episodes of chest pain since admission. C/o occasional abd pain, relieved by lying flat. No additional cardiac complaints. Tele reviewed - NSR 70-80s w/no acute events noted. Objective Last Vital Signs Temp 98.4 F 05/10/20 15:13 Pulse 82 05/10/20 15:13 Resp 18 05/10/20 15:13 BP 116/77 05/10/20 15:13 Pulse Ox 96 05/10/20 15:13 - Physical Examination General: No Apparent Distress HEENT: Positive: EOMI, Normocephaly, Mucus Membranes Moist Neck: Positive: neck supple, trachea midline. Negative: JVD/HJR Cardiac: Positive: Reg Rate and Rhythm, S1/S2. Negative: Audible Murmur Lungs: Positive: clear to auscultation (bilaterally) Neuro: Positive: Grossly Intact Abdomen: Positive: Soft, Active Bowel Sounds. Negative: Tender Skin: Negative: Rash, Wound Musculoskeletal: No Fluid Collection, No Pain, Normal Range of Motion Extremities: Present: upper extr. pulses, lower extr. pulses. Absent: edema - Labs and Meds Cardiac Enzymes 05/10/20 Range/Units 06:01 AST 57 H (5-40) units/L CBC 05/10/20 Range/Units 06:01 WBC 7.1 (4.5-11.0) K/mm3 RBC 4.47 (3.65-5.03) M/mm3 Hgb 13.3 (11.8-15.2) gm/dl Hct 39.4 (35.5-45.6) % Plt Count 173 (140-440) K/mm3 Lymph # 2.3 (1.2-5.4) K/mm3 [place] # 0.7 (0.0-0.8) K/mm3 Eos # 0.0 (0.0-0.4) K/mm3 Baso # 0.0 (0.0-0.1) K/mm3 Comprehensive Metabolic Panel 05/10/20 Range/Units 06:01 Sodium 132 L (137-145) mmol/L Potassium 4.0 (3.6-5.0) mmol/L Chloride 97.6 L (98-107) mmol/L Carbon Dioxide 22 (22-30) mmol/L BUN 14 (9-20) mg/dL Creatinine 1.0 (0.8-1.3) mg/dL Glucose 333 H (75-100) mg/dL Calcium 8.9 (8.4-10.2) mg/dL AST 57 H (5-40) units/L ALT 54 (7-56) units/L Alkaline Phosphatase 138 H (35-129) units/L Total Protein 7.0 (6.3-8.2) g/dL Albumin 3.3 L (3.9-5) g/dL - Imaging and Cardiology EKG: report reviewed, image reviewed - Telemetry EKG Rhythm: Sinus Rhythm - EKG Sinus rhythms and dysrhythmias: sinus tachycardia
== END 2020-05-10 15:49 | disposition home or self-care (01) ==
LOC: ED 23:33 → 4A 05-09 04:55 → INTOOBSV 05-09 04:55 → 4A 05-09 11:32
PROVIDERS: ADMIT Internal Medicine; ATTEND Internal Medicine
DX: R07.89 Other chest pain (principal); I10 Essential (primary) hypertension; E11.00 Type 2 diabetes mellitus with hyperosmolarity without nonketotic hyperglycemic-hyperosmolar coma (NKHHC); E11.65 Type 2 diabetes mellitus with hyperglycemia; K21.9 Gastro-esophageal reflux disease without esophagitis; E66.01 Morbid (severe) obesity due to excess calories; M79.669 Pain in unspecified lower leg; M16.11 Unilateral primary osteoarthritis, right hip; E87.2 Acidosis; E87.1 Hypo-osmolality and hyponatremia; N17.9 Acute kidney failure, unspecified; E78.5 Hyperlipidemia, unspecified; R74.8 Abnormal levels of other serum enzymes; Z79.4 Long term (current) use of insulin; Z68.39 Body mass index [BMI] 39.0-39.9, adult
CPT/HCPCS: 36415; 74022; 74177; 80053; 80061; 81001; 82010; 82805; 82962; 83036; 83690; 83930; 84484; 85025; 85379; 85610; 94640; 96361; 96372; 96374; 96375; 96376; 99285; A9270; C9113; G0378; J1644; J7030; Q9967; 93005; J1815

== ENCOUNTER 2020-05-26 05:49 | Emergency (ER) | payer SELFPAY ==
[2020-05-26] MEDS ORDERED: ASPIRIN 325 MG TAB PO ONE (06:37)
[2020-05-26 07:29] LABS: Basophils % (Auto) 0.4 % (0.0-1.8); Eosinophils % (Auto) 0.1 % (0.0-4.3); Hematocrit 42.8 % (35.5-45.6); Hemoglobin 14.7 gm/dl (11.8-15.2); Lymphocytes # (Auto) 1.6 K/mm3 (1.2-5.4); Lymphocytes % (Auto) 20.6 % (13.4-35.0); Mean Corpuscular HGB Conc 34 % (32-34); Mean Corpuscular Volume 88 fl (84-94); Monocytes # (Auto) 1.1 K/mm3 (0.0-0.8); Monocytes % (Auto) 13.8 % (0.0-7.3); Platelet Count 184 K/mm3 (140-440); Red Blood Count 4.87 M/mm3 (3.65-5.03); Red Cell Distribution Width 13.6 % (13.2-15.2)
[2020-05-26 07:45] LABS: BUN/Creatinine Ratio 6; Blood Urea Nitrogen 8 mg/dL (9-20); Calcium 9.3 mg/dL (8.4-10.2); Hemolysis Index 4
[2020-05-26] MEDS ORDERED: ONDANSETRON 4 MG ODT TAB PO ONE (10:42)
--- NOTE | 2020-05-26 10:44 | Event Note ---
ED Screening Note Date of service: 05/26/20 Time: 10:43 ED Screening Note: Pt c/o N/V and upper abdominal pain x last night cough, denies SOB CP with cough only, hx of OR denies hx of abdominal surgeries This initial assessment/diagnostic orders/clinical plan/treatment(s) is/are subject to change based on patients health status, clinical progression and re- assessment by fellow clinical providers in the ED. Further treatment and workup at subsequent clinical providers discretion. Patient/guardian urged not to elope from the ED as their condition may be serious if not clinically assessed and managed. Initial orders include: initial temp-101, now normal zofran odt
--- NOTE | 2020-05-26 11:10 | XRay Report ---
CHEST 1 VIEW INDICATION / CLINICAL INFORMATION: Chest Pain. COMPARISON: 05/09/2020 FINDINGS: SUPPORT DEVICES: None. HEART / MEDIASTINUM: No significant abnormality. LUNGS / PLEURA: No significant pulmonary or pleural abnormality.. No pneumothorax. ADDITIONAL FINDINGS: No significant additional findings. IMPRESSION: 1. No acute findings. Signer Name: Alvin Camilo MD Signed: 05/26/2020 8:14 AM Workstation Name: [email or web address]
--- NOTE | 2020-05-26 13:52 | Emergency Department Report ---
<JESUS HERNANDEZ - Last Filed: 05/26/20 16:58> ED Abdominal Pain HPI - General Chief Complaint: Fever Stated Complaint: ABD PAIN,CHEST PAIN AND VOMITING Time Seen by Provider: 05/26/20 12:38 - Related Data Previous Rx's Medication Instructions Recorded Last Taken Type RX: Syringe and Needle,Insulin,1Ml 1 each MC TID #1 box 04/05/20 Unknown Rx [Insulin Syringe/Needle 1 ML] RX: Aspirin [Adult Aspirin] 81 mg PO DAILY #30 tablet. 05/10/20 Unknown Rx RX: AtorvaSTATin [Lipitor] 40 mg PO QHS #30 tablet 05/10/20 Unknown Rx RX: Insulin NPH/Regular [NovoLIN 20 unit SQ TIDAC #1 vial 05/10/20 Unknown Rx 70/30] RX: lisinopriL [Zestril TAB] 5 mg PO QDAY #30 tablet 05/10/20 Unknown Rx Dicyclomine [Bentyl] 20 mg PO QID PRN #20 tablet 05/26/20 Unknown Rx RX: Azithromycin [Zithromax Z-SIENNA] 250 mg PO DAILY #6 tablet 05/26/20 Unknown Rx Allergies Allergy/AdvReac Type Severity Reaction Status Date / Time Penicillins Allergy Severe Shortness Verified 05/26/20 05:54 of Breath strawberry AdvReac Hives Verified 05/26/20 05:54 ED Past Medical Hx - Medications Home Medications: Home Medications Medication Instructions Recorded Confirmed Last Taken Type RX: Syringe and Needle,Insulin,1Ml 1 each MC TID #1 box 20 05/09/20 Unknown Rx [Insulin Syringe/Needle 1 ML] RX: Aspirin [Adult Aspirin] 81 mg PO DAILY #30 tablet. 05/10/20 Unknown Rx RX: AtorvaSTATin [Lipitor] 40 mg PO QHS #30 tablet 05/10/20 Unknown Rx RX: Insulin NPH/Regular [NovoLIN 20 unit SQ TIDAC #1 vial 05/10/20 Unknown Rx 70/30] RX: lisinopriL [Zestril TAB] 5 mg PO QDAY #30 tablet 05/10/20 Unknown Rx Dicyclomine [Bentyl] 20 mg PO QID PRN #20 tablet 05/26/20 Unknown Rx RX: Azithromycin [Zithromax Z-SIENNA] 250 mg PO DAILY #6 tablet 05/26/20 Unknown Rx ED Medical Decision Making - Lab Data Result diagrams: 05/26/20 07:19 05/26/20 07:19 - Radiology Data Radiology results: report reviewed, image reviewed CT abdomen pelvis wo con INDICATION: RLQ pain. COMPARISON: 05/09/2020 TECHNIQUE: Abdominal and pelvic CT exam performed. All CT scans at this location are performed using CT dose reduction for ALARA by means of automated exposure control. FINDINGS: CT ABDOMEN and PELVIS: Lung Bases: There are a couple of scattered ground glass opacities seen within the visualized lung bases. New left lateral basal parenchymal opacity could be related atelectasis. Liver: Diffuse hypoattenuation of the liver. Biliary: No significant abnormality. Spleen: No significant abnormality. Pancreas: No significant abnormality. Adrenals: No significant abnormality. Kidneys: Scattered hypoattenuating lesions most likely represent cysts. No hydronephrosis. No renal stone. Lymphatics: No lymphadenopathy. Vasculature: No significant abnormality. Bowel/Peritoneum: Diverticulosis without colonic wall thickening or pericolonic stranding. Normal appendix. Pelvis: No significant abnormality. Osseous Structures: There are degenerative changes of the right hip. Additional Findings: None IMPRESSION: 1. Scattered new mild ground glass opacities within the incompletely visualized lung bases. Findings are nonspecific but could be infectious and/or inflammatory in etiology including viral pneumonia. 2. Severe diffuse hepatic steatosis. 3. Severe right hip degenerative changes. - Medical Decision Making I reevaluated patient. Patient did not have abdominal tenderness on exam. I reviewed CT findings. No evidence of acute inflammatory or obstructive process in the abdomen pelvis. Patient does have groundglass opacities likely due to atypical pneumonia. I strongly suspect COVID-19 infection. I prescribed azithromycin. Patient received verbal and written education regarding his diag nosis. ED Disposition Clinical Impression: Abdominal pain, Suspected 2018 novel coronavirus infection, Pneumonia due to COVID-19 virus Disposition: DC-01 TO HOME OR SELFCARE Is pt being admited?: No Does the pt Need Aspirin: No Condition: Stable Instructions: COVID-19, Abdominal Pain (ED) Prescriptions: Dicyclomine [Bentyl] 20 mg PO QID PRN #20 tablet PRN Reason: abdominal pain RX: Azithromycin [Zithromax Z-SIENNA] 250 mg PO DAILY #6 tablet Referrals: PERI BASILIO RN [Primary Care Provider] - 3-5 Days [facility] [Provider Group] - 3-5 Days <AZUCENA CUNNINGHAM - Last Filed: 05/27/20 09:00> ED Abdominal Pain HPI - General Source: patient Mode of arrival: Ambulatory Limitations: No Limitations - History of Present Illness Initial Comments: 54-year-old female presents to ED with complaint of abdominal pain. Patient states pain has been present since May 09. Patient was seen and admitted at that time for abdominal pain and also chest pain work-up. Patient had a normal CT abdomen pelvis at that time also. Today, patient reports same abdominal pain, located in the right lower quadrant, with associated mild cough and mild chest pain w/ cough. Pt was febrile upon initial triage. Fever currently resolved. MD Complaint: abdominal pain -: week(s) (2.5) Location: RLQ Radiation: none Migration to: no migration Severity: moderate Quality: cramping Consistency: intermittent Improves With: nothing Worsens With: nothing Associated Symptoms: fever. denies: nausea, vomiting ED Review of Systems ROS: Stated complaint: ABD PAIN,CHEST PAIN AND VOMITING Other details as noted in HPI Comment: All other systems reviewed and negative Constitutional: chills, fever Respiratory: cough. denies: shortness of breath Cardiovascular: chest pain Gastrointestinal: abdominal pain. denies: nausea, vomiting ED Past Medical Hx - Past Medical History Hx Hypertension: Yes Hx Congestive Heart Failure: No Hx Diabetes: Yes Hx Arthritis: Yes Hx Asthma: No Hx COPD: No Hx HIV: No - Social History Smoking Status: Never Smoker Substance Use Type: None ED Physical Exam - General Limitations: No Limitations General appearance: alert, in no apparent distress - Head Head exam: Present: atraumatic, normocephalic - Eye Eye exam: Present: normal appearance - ENT ENT exam: Present: mucous membranes moist - Neck Neck exam: Present: normal inspection - Respiratory Respiratory exam: Present: normal lung sounds bilaterally. Absent: respiratory distress - Cardiovascular Cardiovascular Exam: Present: regular rate, normal rhythm - GI/Abdominal GI/Abdominal exam: Present: soft, tenderness (RLQ). Absent: distended - Extremities Exam Extremities exam: Present: normal inspection - Neurological Exam Neurological exam: Present: alert, oriented X3 - Psychiatric Psychiatric exam: Present: normal affect, normal mood - Skin Skin exam: Present: warm, dry, intact, normal color ED Course Vital Signs 05/26/20 05/26/20 05/26/20 05:54 05:55 10:40 Temperature 101.0 F H 101.0 F H 99.7 F H Pulse Rate 98 H 103 H 93 H Respiratory 18 18 Rate Blood Pressure 178/105 175/105 131/91 Blood Pressure [Left] O2 Sat by Pulse 98 96 Oximetry 05/26/20 05/26/20 05/26/20 12:30 12:41 13:00 Temperature 99.1 F Pulse Rate 95 H 79 Respiratory 19 12 16 Rate Blood Pressure 169/109 Blood Pressure 164/104 [Left] O2 Sat by Pulse 98 97 Oximetry 05/26/20 05/26/20 05/26/20 14:00 15:00 16:00 Temperature 98.4 F Pulse Rate 71 75 65 Respiratory 19 21 22 Rate Blood Pressure 127/88 154/98 147/86 Blood Pressure [Left] O2 Sat by Pulse 91 95 94 Oximetry ED Medical Decision Making - Lab Data Result diagrams: 05/26/20 07:19 05/26/20 07:19 - EKG Data -: EKG Interpreted by Ak EKG shows normal: sinus rhythm, axis, intervals, QRS complexes Rate: normal - EKG Data Interpretation: other (inferior T wave inversions) - Radiology Data Radiology results: report reviewed, image reviewed - Medical Decision Making 54-year-old male presents to ED with abdominal pain, cough, chest pain associated with cough. On initial presentation patient had a fever of 101. He is currently afebrile. Labs are unremarkable. EKG shows no ST changes. Troponin is negative. Chest x-ray is negative for infiltrate or other acute findings. UA is negative for any evidence of UTI. CT abdomen pelvis currently pending. Patient signed out to my colleague, Dr Hernandez, to follow up on CT results. Critical care attestation.: If time is entered above; I have spent that time in minutes in the direct care of this critically ill patient, excluding procedure time.
[2020-05-26 14:17] LABS: Bilirubin,Urine NEG (Negative); Color,Urine Amber (Yellow)
[2020-05-26 14:18] LABS: Blood,Urine NEG (Negative); Mucus,Urine 3+ /HPF
[2020-05-26 16:10] VITALS: BP 147/86
[2020-05-26] MEDS ORDERED: DICYCLOMINE 20 MG/2 ML INJ IM ONE (16:17)
--- NOTE | 2020-05-26 16:24 | Cat Scan Report ---
CT abdomen pelvis wo con INDICATION: RLQ pain. COMPARISON: 05/09/2020 TECHNIQUE: Abdominal and pelvic CT exam performed. All CT scans at this location are performed using CT dose reduction for ALARA by means of automated exposure control. FINDINGS: CT ABDOMEN and PELVIS: Lung Bases: There are a couple of scattered ground glass opacities seen within the visualized lung ba ses. New left lateral basal parenchymal opacity could be related atelectasis. Liver: Diffuse hypoattenuation of the liver. Biliary: No significant abnormality. Spleen: No significant abnormality. Pancreas: No significant abnormality. Adrenals: No significant abnormality. Kidneys: Scattered hypoattenuating lesions most likely represent cysts. No hydronephrosis. No renal s tone. Lymphatics: No lymphadenopathy. Vasculature: No significant abnormality. Bowel/Peritoneum: Diverticulosis without colonic wall thickening or pericolonic stranding. Normal beau endix. Pelvis: No significant abnormality. Osseous Structures: There are degenerative changes of the right hip. Additional Findings: None IMPRESSION: 1. Scattered new mild ground glass opacities within the incompletely visualized lung bases. Findings are nonspecific but could be infectious and/or inflammatory in etiology including viral pneumonia. 2. Severe diffuse hepatic steatosis. 3. Severe right hip degenerative changes. Signer Name: Blair Calderon MD Signed: 05/26/2020 4:20 PM Workstation Name: [id number]
== END 2020-05-26 17:28 | disposition home or self-care (01) ==
LOC: ED 05:49
DX: U07.1 COVID-19 (principal); R10.9 Unspecified abdominal pain; I10 Essential (primary) hypertension; E11.9 Type 2 diabetes mellitus without complications; M19.90 Unspecified osteoarthritis, unspecified site; Z20.828 Contact with and (suspected) exposure to other viral communicable diseases; Z88.0 Allergy status to penicillin; Z91.018 Allergy to other foods; Z79.899 Other long term (current) drug therapy
CPT/HCPCS: 36415; 71046; 74176; 80048; 81001; 83690; 84484; 85025; 93005; 96372; 99285; J0500; Q0162

== ENCOUNTER 2022-01-01 16:30 | Emergency (ER) | payer MEDICARE, OTHER ==
[2022-01-01] MEDS ORDERED: ASPIRIN 325 MG TAB PO ONE ×2 (16:51→21:00)
--- NOTE | 2022-01-01 17:18 | XRay Report ---
CHEST 2 VIEWS INDICATION / CLINICAL INFORMATION: SOB, chest pain. COMPARISON: 05/26/2020 FINDINGS: SUPPORT DEVICES: None. HEART / MEDIASTINUM: No significant abnormality. LUNGS / PLEURA: No significant pulmonary or pleural abnormality. No pneumothorax. ADDITIONAL FINDINGS: No significant additional findings. IMPRESSION: 1. No acute findings. Signer Name: Ha Denny MD Signed: 01/01/2022 5:13 PM Workstation Name: [id number]
[2022-01-01 18:49] LABS: Basophils % (Auto) 0.3 % (0.0-1.8); Eosinophils # (Auto) 0.1 K/mm3 (0.0-0.4); Eosinophils % (Auto) 0.6 % (0.0-4.3); Hemoglobin 14.1 gm/dl (11.8-15.2); Lymphocytes # (Auto) 3.4 K/mm3 (1.2-5.4); Lymphocytes % (Auto) 33.2 % (13.4-35.0); Mean Corpuscular HGB Conc 33 % (32-34); Mean Corpuscular Volume 89 fl (84-94); Monocytes # (Auto) 0.9 K/mm3 (0.0-0.8); Platelet Count 214 K/mm3 (140-440); Red Blood Count 4.86 M/mm3 (3.65-5.03); Red Cell Distribution Width 13.6 % (13.2-15.2)
[2022-01-01 19:12] LABS: Alanine Aminotransferase 36 units/L (7-56); Albumin 3.9 g/dL (3.9-5); BUN/Creatinine Ratio 16; Blood Urea Nitrogen 14 mg/dL (9-20); Calcium 9.9 mg/dL (8.4-10.2); Hemolysis Index 5
--- NOTE | 2022-01-01 21:14 | Emergency Department Report ---
Minor Respiratory - HPI Chief Complaint: Dyspnea/Respdistress Stated Complaint: COUGHING/SOB Time Seen by Provider: 01/01/22 20:43 Duration: 2 weeks Severity: mild Minor Respiratory: Yes Able to Tolerate Fluids, Yes Cough, Yes Shortness of Breath, No Rhinorrhea, No Sore Throat, No Ear Pain, No Sick Contacts, No Hemoptysis, No Chest Pain, No Fever Other History: Chief complaint: "I have just been coughing.". HPI: This is a 54-year-old male with history of hypertension, diabetes mellitus who presents with cough for 2 weeks. He denies fever, chest pain. He has mild shortness of breath. He has been vaccinated against COVID-19. Gradual onset. No change with exertion or movement. No home treatment attempted. No current pain or discomfort. ED Review of Systems ROS: Stated complaint: COUGHING/SOB Other details as noted in HPI Comment: All other systems reviewed and negative Constitutional: denies: chills, fever, malaise Respiratory: cough, shortness of breath Cardiovascular: denies: chest pain Gastrointestinal: denies: abdominal pain, nausea, vomiting ED Past Medical Hx - Past Medical History Previous Medical History?: Yes Hx Hypertension: Yes Hx Congestive Heart Failure: No Hx Diabetes: Yes Hx Arthritis: Yes Hx Asthma: No Hx COPD: No Hx HIV: No Additional medical history: hip pain - Surgical History Past Surgical History?: No - Family History Family history: hypertension - Social History Smoking Status: Never Smoker Substance Use Type: Prescribed - Medications Home Medications: Home Medications Medication Instructions Recorded Confirmed Last Taken Type Syringe and Needle,Insulin,1Ml 1 each MC TID #1 box 04/05/20 05/09/20 Unknown Rx [Insulin Syringe/Needle 1 ML] Aspirin [Adult Aspirin] 81 mg PO DAILY #30 tablet. 05/10/20 Unknown Rx AtorvaSTATin [Lipitor] 40 mg PO QHS #30 tablet 05/10/20 Unknown Rx Insulin NPH/Regular [NovoLIN 70/30] 20 unit SQ TIDAC #1 vial 05/10/20 Unknown Rx lisinopriL [Zestril TAB] 5 mg PO QDAY #30 tablet 05/10/20 Unknown Rx Azithromycin [Zithromax Z-SIENNA] 250 mg PO DAILY #6 tablet 05/26/20 Unknown Rx Dicyclomine [Bentyl] 20 mg PO QID PRN #20 tablet 05/26/20 Unknown Rx Benzonatate [Tessalon Perles] 100 mg PO Q8HR PRN #15 cap 01/01/22 Unknown Rx Minor Respiratory Exam - Exam General: Vital signs noted. No distress. Alert and acting appropriately. The patient appeared well nourished and normally developed. Vital signs as documented. Head exam is unremarkable. No scleral icterus or corneal arcus noted. Neck is without jugular venous distension, thyromegaly, or carotid bruits. Carotid upstrokes are brisk bilaterally. Lungs are clear to auscultation and percussion. Cardiac exam reveals the PMI to be normally sized and situated. Rhythm is regular. First and second heart sounds normal. No murmurs, rubs or gallops. Abdominal exam reveals normal bowel sounds, no masses, no organomegaly and no aortic enlargement. Extremities are nonedematous and both femoral and pedal pulses are normal. HEENT: Yes Moist Mucous Membranes, No Pharyngeal Erythema, No Pharyngeal Exudates, No Rhinorrhea, No Conjuctival Injection, No Frontal Tenderness, No Maxillary Tenderness Neck: Yes Supple, No Adenopathy Lungs: Yes Good Air Exchange, No Wheezes, No Ronchi, No Stridor, No Cough, No Labored Respirations, No Retractions, No Use of Accessory Muscles, No Other Abnormal Lung Sounds Heart: Yes Regular, No Murmur Abdomen: Yes Normal Bowel Sounds, No Tenderness, No Peritoneal Signs Skin: No Rash, No Edema Neurologic: Alert and oriented, no deficits. Musculoskeletal: Unremarkable. ED Course Vital Signs 01/01/22 01/01/22 01/01/22 16:41 20:51 21:08 Temperature 98.8 F 98.8 F Pulse Rate 87 81 78 Respiratory 20 16 12 Rate Blood Pressure 163/116 Blood Pressure 166/102 146/105 [Left] O2 Sat by Pulse 97 100 100 Oximetry ED Medical Decision Making - Lab Data Result diagrams: 01/01/22 18:34 01/01/22 18:34 - EKG Data -: EKG Interpreted by Me EKG shows normal: sinus rhythm Rate: normal - EKG Data Interpretation: nonspecific ST-T wave fritz 01/01/22 21:13 EKG obtained 1657 EKG interpreted by me Normal sinus rhythm rate 84 bpm left axis deviation no ST elevation nonspecific T wave findings normal intervals - Radiology Data Radiology results: report reviewed Patient Name: JOSIE GIBSON Gender: Male Date of : 1965 Referring Provider: OSCAR, ED Organization: [facility] Accession Number: [id number] Requested Date: January 01, 2022 16:52 Report Status: Final Requested Procedure: 1 Procedure Description: XR chest routine 2V Modality: XR Findings Reporting MD: Ha Denny Dictation Time: January 01, 2022 16:13 Internal Combustion Engineer: Not available Commissioning Agent Date: CHEST 2 VIEWS INDICATION / CLINICAL INFORMATION: SOB, chest pain. COMPARISON: 05/26/2020 FINDINGS: SUPPORT DEVICES: None. HEART / MEDIASTINUM: No significant abnormality. LUNGS / PLEURA: No significant pulmonary or pleural abnormality. No pneu mothorax. ADDITIONAL FINDINGS: No significant additional findings. IMPRESSION: 1. No acute findings. Signer Name: Ha Denny MD Signed: 01/01/2022 4:13 PM Workstation Name: [email or web address] - Medical Decision Making Cough x2 weeks: Suspect COVID-19 infection. Chest x-ray negative for infiltrate. Patient's oxygen saturation 90% on room air. He appears well. Patient had chest pain protocol initiated upon arrival. CBC chemistry troponin unremarkable with exception of hyperglycemia. Critical care attestation.: If time is entered above; I have spent that time in minutes in the direct care of this critically ill patient, excluding procedure time. ED Disposition Clinical Impression: Viral illness Disposition: HOME / SELF CARE / HOMELESS Is pt being admited?: No Does the pt Need Aspirin: No Condition: Stable Instructions: Viral Illness, Adult Prescriptions: Benzonatate [Tessalon Perles] 100 mg PO Q8HR PRN #15 cap PRN Reason: Cough Heart Score - HEART Score History: Slightly suspicious EKG: Non-specific Age: 45-65 Risk factors: 1-2 risk factors Troponin: < normal limit HEART Score: 3 - EKG Read Time Time EKG Completed: 16:57 EKG Read Time: 17:03 - Critical Actions Critical Actions: 0-3 pts:0.9-1.7%risk of adverse cardiac event.Candidate for discharge
[2022-01-01 21:34] VITALS: BP 144/93
--- NOTE | 2022-01-02 09:35 | Electrocardiograph Report ---
[facility] Test Date: 2022-01-01 Test Time: 16:57:26 Pat Name: JOSIE ALMARAZ Department: Room: Gender: M Timber Inspector: Yen HA RN : 1965 Requested By: JESUS BARNES Order Number: [id number] Reading MD: Guanaco Almaraz Measurements Intervals [place] Rate: 84 P: 35 OK: 150 QRS: -34 QRSD: 86 T: -21 QT: 373 QTc: 441 Interpretive Statements Sinus rhythm Left axis deviation Borderline T abnormalities, diffuse leads No previous ECG available for comparison Electronically Signed On 01-02-2022 9:35:31 EDT by Guanaco Almaraz
== END 2022-01-01 21:49 | disposition home or self-care (01) ==
LOC: ED 16:30
DX: B34.9 Viral infection, unspecified (principal); I10 Essential (primary) hypertension; E11.8 Type 2 diabetes mellitus with unspecified complications
CPT/HCPCS: 36415; 71046; 80053; 84484; 85025; 93005; 99284

== ENCOUNTER 2022-05-17 16:10 | Emergency (ER) | payer MEDICARE ==
[2022-05-17 17:38] VITALS: BP 130/90
--- NOTE | 2022-05-18 11:13 | Electrocardiograph Report ---
[facility] Test Date: 2022-05-17 Test Time: 17:50:19 Pat Name: JOSIE GIBSON Department: Room: Gender: M Karate Instructor: ТАТЬЯНА : 1965 Requested By: PARTH COLE Order Number: [id number] Reading MD: Harshad Randall Measurements Intervals [place] Rate: 83 P: 15 FL: 150 QRS: -32 QRSD: 93 T: -27 QT: 370 QTc: 434 Interpretive Statements Sinus rhythm Probable left atrial enlargement Left axis deviation Probable anteroseptal infarct, old Compared to ECG 01/01/2022 16:57:26 Myocardial infarct finding now present T-wave abnormality no longer present Electronically Signed On 05-18-2022 11:12:17 EDT by Harshad Randall
== END 2022-05-18 14:21 | disposition left against medical advice (07) ==
LOC: ED 16:10
DX: R07.9 Chest pain, unspecified (principal); Z53.21 Procedure and treatment not carried out due to patient leaving prior to being seen by health care provider
CPT/HCPCS: 93005